=== PATIENT | female | born 1985 | race Caucasian/White ===

== ENCOUNTER 2022-06-11 03:20 | Inpatient (IN) | payer SELFPAY ==
[~2022-06-11] VITALS: Ht 157 cm; Wt 81.2 kg
[2022-06-11] MEDS ORDERED: OXYTOCIN 30 UNITS/500ML NS PMX 500 ML IV SCH ×2 (04:00→05:15)
[2022-06-11] MEDS ORDERED: LACTATED RINGERS 1,000 ML IV SCH (04:00)
[2022-06-11] MEDS ORDERED: NALOXONE HCL 0.4 MG/ML 1ML VIAL IM PRN (04:00)
[2022-06-11] MEDS ORDERED: METHYLERGONOVINE MALEATE 0.2 MG/ML IM PRN ×2 (04:00→05:15)
[2022-06-11] MEDS ORDERED: CARBOPROST TROMETHAMINE 250 MCG/ML AMPUL IM PRN (04:00)
[2022-06-11 05:00] VITALS: BP 115/69
[2022-06-11] MEDS ORDERED: RHO(D) IMMUNE GLOBULIN 300 MCG/SYR IM PRN (05:15)
[2022-06-11] MEDS ORDERED: IBUPROFEN 400MG TABLET PO PRN (05:15)
[2022-06-11] MEDS ORDERED: LANOLIN OINT 7GM TUBE TOP PRN (05:15)
[2022-06-11] MEDS ORDERED: IBUPROFEN 800MG TABLET PO PRN (05:15)
[2022-06-11 05:20] LABS: BASOPHILS % 0.4 % (0.0-2.0); EOSINOPHILS % 0.3 % (0.0-5.0); HEMATOCRIT. 36.8 % (36.0-48.0); HEMOGLOBIN. 12.2 g/dL (12.0-16.0); LYMPHOCYTES % 11.6 % (20.0-50.0); MEAN CORPUSCULAR HEMOGLOBIN 30.2 pg (28.0-32.0); MEAN CORPUSCULAR VOLUME 90.7 fL (81.0-99.0); MEAN PLATELET VOLUME 10.3 fl (7.4-10.4); MONOCYTES % 5.3 % (2.0-8.0); NEUTROPHILS % 82.4 % (40.0-76.0); PLATELET 312 x1000/uL (130-400); RED BLOOD CELL COUNT 4.05 mill/uL (4.2-5.4); RED CELL DISTRIBUTION WIDTH 14.3 % (11.6-14.6)
[2022-06-11 05:46] LABS: INR 0.9; PROTHROMBIN TIME 9.5 sec (9.6-11.0)
[2022-06-11 05:48] LABS: HEPATITIS B SURFACE ANTIGEN NEGATIVE
[2022-06-11 06:00] VITALS: BP 89/53
[2022-06-11 06:34] LABS: CLARITY URINE CLEAR (CLEAR); COLOR URINE YELLOW (YELLOW); KETONES URINE NEGATIVE (NEGATIVE); LEUKOCYTE ESTERASE URINE NEGATIVE (NEGATIVE); NITRITE URINE NEGATIVE (NEGATIVE); OCCULT BLOOD URINE NEGATIVE (NEGATIVE); PROTEIN URINE TRACE (NEGATIVE); SPECIFIC GRAVITY URINE 1.015 (1.005-1.030); UROBILINOGEN URINE 0.2 E.U./dL (0.2-1.0)
[2022-06-11 06:51] LABS: *AMPHETAMINES SCREEN URINE NEGATIVE (NEGATIVE); *BARBITURATES SCREEN URINE NEGATIVE (NEGATIVE); *BENZODIAZEPINES SCREEN URINE NEGATIVE (NEGATIVE); *COCAINE SCREEN URINE NEGATIVE (NEGATIVE); CANNABINOID URINE SCREEN NEGATIVE (NEGATIVE); METHADONE URINE SCREEN NEGATIVE (NEGATIVE); OPIATES URINE SCREEN NEGATIVE (NEGATIVE); PHENCYCLIDINE URINE SCREEN NEGATIVE (NEGATIVE)
[2022-06-11 08:00] VITALS: BP 96/53
[2022-06-11] MEDS ORDERED: PRENATAL VIT/FE FUMARATE/FA TABLET PO SCH (09:00)
[2022-06-11 16:00] VITALS: BP 101/59
[2022-06-11 19:30] VITALS: BP 105/66
[2022-06-12 04:00] VITALS: BP 95/56
[2022-06-12 06:44] LABS: BASOPHILS % 0.3 % (0.0-2.0); EOSINOPHILS % 1.4 % (0.0-5.0); HEMATOCRIT. 35.9 % (36.0-48.0); LYMPHOCYTES % 17.9 % (20.0-50.0); MEAN CORPUSCULAR HEMOGLOBIN 30.7 pg (28.0-32.0); MEAN PLATELET VOLUME 9.3 fl (7.4-10.4); MONOCYTES % 7.1 % (2.0-8.0); NEUTROPHILS % 73.3 % (40.0-76.0); PLATELET 259 x1000/uL (130-400); RED CELL DISTRIBUTION WIDTH 14.6 % (11.6-14.6)
[2022-06-12 07:53] VITALS: BP 103/65
[2022-06-12 16:05] VITALS: BP 103/46
[2022-06-12 20:00] VITALS: BP 102/59
[2022-06-13 04:00] VITALS: BP 107/69
[2022-06-13 08:00] VITALS: BP 101/68
== END 2022-06-13 10:00 | disposition home or self-care (01) | DRG 548 ==
LOC: OBSVTOIN 03:20 → 8 EST LDRP 03:20 → 8EST 04:53
PROVIDERS: ADMIT Obstetrics & Gynecology; ATTEND Obstetrics & Gynecology
PROC: 10D17ZZ Extraction of Products of Conception, Retained, Via Natural or Artificial Opening (ICD-10-PCS; principal; 2022-06-11)
DX: Z39.0 Encounter for care and examination of mother immediately after delivery (principal); O72.0 Third-stage hemorrhage; Z20.822 Contact with and (suspected) exposure to COVID-19
CPT/HCPCS: 36415; 80305; 81003; 85025; 86592; 86703; 86762; 86850; 86900; 87340; 87426; 99281; G0378; J2590

== ENCOUNTER 2025-05-14 23:32 | Emergency (ER) | payer MEDICAID ==
[~2025-05-14] VITALS: Ht 154.9 cm; Wt 88.0 kg
[2025-05-14 23:48] VITALS: O2SAT 98
[2025-05-15] MEDS: LACTATED RINGERS 1,000 ML IV STA (00:13)
[2025-05-15 00:31] VITALS: BP 143/88; PULSE 73; RESP 19; TEMP 36.9; O2SAT 98
== END 2025-05-15 00:52 | disposition short-term general hospital (02) ==
LOC: ER 23:32
DX: O60.14X0 Preterm labor third trimester with preterm delivery third trimester, not applicable or unspecified (principal); O26.893 Other specified pregnancy related conditions, third trimester; N85.8 Other specified noninflammatory disorders of uterus; Z3A.40 40 weeks gestation of pregnancy
CPT/HCPCS: 99291; 96360; J7120